=== PATIENT | male | born 1995 | race Two or more races ===

== ENCOUNTER 2024-07-12 23:53 | Emergency (ER) | payer OTHER ==
[~2024-07-12] VITALS: Ht 162.6 cm; Wt 44.6 kg
[2024-07-13 00:18] VITALS: BP 126/92; PULSE 66; RESP 16; TEMP 97.8; O2SAT 100
[2024-07-13] MEDS: ACETAMINOPHEN 500 MG TAB PO ONE (03:11)
[2024-07-13] MEDS: SILVER SULFADIAZINE 1 % TOPICAL CREAM 50GM TOP ONE (03:12)
== END 2024-07-13 03:31 | disposition home or self-care (01) ==
LOC: ER 23:53
DX: T22.222A Burn of second degree of left elbow, initial encounter (principal); T22.212A Burn of second degree of left forearm, initial encounter; T24.211A Burn of second degree of right thigh, initial encounter; T24.232A Burn of second degree of left lower leg, initial encounter; T31.0 Burns involving less than 10% of body surface; Z88.8 Allergy status to other drugs, medicaments and biological substances; X12.XXXA Contact with other hot fluids, initial encounter; Y93.89 Activity, other specified; Y92.89 Other specified places as the place of occurrence of the external cause; Y99.0 Civilian activity done for income or pay
CPT/HCPCS: 16000